=== PATIENT | male | born 1960 | race Caucasian/White ===

== ENCOUNTER 2018-03-25 16:53 | Emergency (ER) | payer BC, SELFPAY ==
[2018-03-25 16:54] VITALS: BP 122/77; PULSE 66; RESP 18; TEMP 37.1; O2SAT 95; BMI 28.0
--- NOTE | 2018-03-25 17:12 | RAD_ITS ---
STUDY: X-RAY - UNILATERAL RIBS ( RIGHT ) WITH CHEST REASON FOR EXAM: Male, 57 years old. Posterior and lower right rib bruising and pain. Injury. TECHNIQUE - RIBS: 4 view(s) of the ribs. TECHNIQUE - CHEST: Single frontal view of the chest. COMPARISON: None. FINDINGS - RIBS: Normal visualized ribs without a demonstrated fracture. FINDINGS - CHEST: The lungs are hyperexpanded. There is no demonstrated pleural abnormality. Normal size heart. Normal mediastinum and gilmer. Normal visualized pulmonary arteries. Normal visualized aortic arch and descending thoracic aorta. Normal visualized thoracic spine. Normal visualized ribs, clavicles, and shoulders. There is no demonstrated abnormality of the visualized soft tissue structures of the upper abdomen. RAD/Ribs Uni Min 3V w/PA Chest IMPRESSION: RIBS: Normal x-ray examination of the ribs. CHEST: Hyperexpansion with no acute pathology. Electronically Signed: Latrell Booth MD at 18:09 EDT , Service support ,
--- NOTE | 2018-03-25 17:14 | ED.DCSUM_ITS ---
- ER Visit Summary Date of Service: 03/25/18 Chief Complaint: Right rib pain History of Present Illness: The patient is a 57 M who has right rib pain. He states that 4 days ago he was working on a porch when a piece of wood came down and hit him on the right side of the chest. No head trauma or LOC. He c ontinues to have pain in the right ribs. Is worse with movement and sneezing. 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 He has been trying Tylenol which has not been helping. Physical Examination: Vital signs reviewed. HEENT exam reveals no trauma. Heart is regular rate and rhythm. Lungs are clear to auscultation. He has right lower rib tenderness to palpation in the mid axillary line. There is ecchymosis in this area. His back is nontender. Neurologic exam normal. Test Results: Rib series of the right ribs reveals no fractures Emergency Department Course and Treatment: Patient was given oxycodone for pain. Patient will be discharged with oxycodone for pain. He will ice and will follow up with his PCP Treatment Plan: [] Disposition: Discharge Impression: Right rib contusion This note was generated with [employer] dictation software. It may contain incorrect words, spelling, and punctuation that were not noted in review of the chart prior to signing ED Disposition - Plan for ED Patient: Chief Complaint: Chest Other Referrals: NOT,DEFINED [NON-STAFF] -
[2018-03-25] MEDS: oxyCODONE 5 MG Tablet PO (18:21)
--- NOTE | 2018-03-25 18:41 | ED.DEP ---
ED Disposition - Plan for ED Patient: Disposition: Home or Assisted Living Chief Complaint: Chest Other Instructions: ED Contusion Chest Wall Prescriptions: Oxycodone HCl [Roxicodone] 5 mg PO 4X/DAY 3 Days #6 tab Referrals: NOT,DEFINED [NON-STAFF] -
== END 2018-03-25 19:18 | disposition home or self-care (01) ==
PROVIDERS: Emergency Provider Emergency Medicine
DX: S20.211A Contusion of right front wall of thorax, initial encounter (principal); W22.8XXA Striking against or struck by other objects, initial encounter; Y93.9 Activity, unspecified; Y92.89 Other specified places as the place of occurrence of the external cause; Y99.9 Unspecified external cause status; I10 Essential (primary) hypertension; Z86.73 Personal history of transient ischemic attack (TIA), and cerebral infarction without residual deficits
CPT/HCPCS: 71101; 99283